=== PATIENT | male | born 1980 | race Caucasian/White ===

== ENCOUNTER 2020-05-14 17:46 | Emergency (ER) | payer OTHER, SELFPAY ==
[2020-05-14 18:57] VITALS: BP 110/68; PULSE 91; RESP 18; TEMP 37.1; O2SAT 100; BMI 31.5
--- NOTE | 2020-05-14 20:23 | ED_ITS ---
HPI - General Adult General Chief complaint: General Medical Stated complaint: flu like Source: patient Mode of arrival: ambulatory Limitations: language barrier History of Present Illness HPI narrative: 39-year-old male with no significant past medical history presents with 1 day of upper respiratory symptoms, sore throat, and fevers. He does not report any sick contacts, to Tylenol with poor effect. He does not describe any chest pain or pressure palpitations, difficulty swallowing secretions, abdominal pain, abdominal distention, dysuria, hematuria, edema. Onset (ago): day(s) (2) Location: head Radiation: non-radiation Severity: moderate Severity scale (1-10): 6 Quality: burning and aching Pain Consistency: constant Relieving factors: none Exacerbating factors: eating Associated symptoms: fever/chills and headaches Treatments prior to arrival: NSAID Related Data Previous Rx's Medication Instructions Recorded amoxicillin 500 mg PO Q12H 10 Days #20 tab 05/14/20 ibuprofen 600 mg PO Q6H PRN #30 tab 05/14/20 Allergies Allergy/AdvReac Type Severity Reaction Status Date / Time albuterol [ALBUTEROL] Allergy Mild RASH Verified 05/14/20 18:57 codeine [CODEINE] Allergy Mild RASH Verified 05/14/20 18:57 Review of Systems Review of Systems: Constitutional: positive Fever, positive Chills, positive fatigue, positive Malaise ENT/Mouth: positive sore throat, no runny nose Eyes: No Discharge Cardiovascular: No Chest Pain, No SOB Respiratory: No Cough, No Sputum, No Wheezing, No Smoke Exposure, No Dyspnea Gastrointestinal: No Nausea, No Vomiting, No Diarrhea Genitourinary: no irregular bleeding, No Dysuria, No Urinary Frequency, No Hematuria, No Urinary Incontinence, No Urgency, No Flank Pain, Musculoskeletal: positive Myalgia Skin: No rash Neuro: No Headache Yes all other systems are reviewed and are negative PMFSH Past Medical History Attestation statement: The following information was validated with the patient. Source: old records reviewed Medical History (Updated 05/14/20 @ 21:05 by Ludy Mcdonald NP) Patient denies medical problems Social History Social History Advance Directives: Yes Advance Directives on File: Yes Advance Directives Date on File: 01/12/20 Physical Exam Vital Signs: Vital Signs: Last Vital Signs Temp 98.7 F 05/14/20 18:57 Pulse 91 05/14/20 18:57 Resp 18 05/14/20 18:57 BP 110/68 05/14/20 18:57 Pulse Ox 100 05/14/20 18:57 Body Mass Index 31.5 Appearance: Alert. Oriented X3. Mild distress. Eyes: Pupils equal, round and reactive to light. ENT: Bilateral tonsillar swelling with exudates, Cent[place] scale 3 Neck: Normal inspection. No lymphadenopathy. CVS: Normal heart rate and rhythm. Pulses normal. Respiratory: No respiratory distress. Breath sounds normal. Abdomen: Soft and nontender to palpation. Skin: Skin warm and dry. Normal skin color. Normal skin turgor. Extremities: No lower extremity edema. Neuro: No motor deficit. No sensory deficit. Course Course Course Narrative: 39-year-old male with no significant past medical history presents for upper respiratory symptoms for approximately 1 day. Visual examination of his oropharyngeal shows bilateral tonsillar swelling with exudates, does not have a cough, or cervical lymphadenopathy. No abdominal tenderness. Plan is for COVID and strep test, and for treatment with amoxicillin. Patient verbalized understanding of and agrees to plan of care discharge home. seismic interpreter utilized for all correspondence. Google translate of discharge instructions. Medical Decision Making Differential Diagnosis Differential Diagnosis: URI, strep pharyngitis, COVID-19, influenza Medical Records Medical records reviewed: Yes I reviewed the patient's medical records. Lab Data Lab results reviewed: Yes I reviewed the patient's lab results. Labs: Lab Results 05/14/20 Range/Units 20:29 COVID-19 ([facility]) Negative (Negative) COVID-19 Clin Com See Note Discharge Plan Discharge Clinical Impression: COVID-19 Pharyngitis Qualifiers: Pharyngitis/tonsillitis etiology: unspecified etiology Qualified Code(s): J02.9 - Acute pharyngitis, unspecified Patient Disposition: Home, Self-Care Instructions: Pharyngitis (ED), Strep Throat (ED), COVID-19 (Coronavirus Disease 2019) (ED) Additional Instructions: Se le evaluaron para los s?ntomas de las v?as respiratorias superiores. El examen f?sico indica faringitis estreptoc?cica. Por favor, tome amoxicilina armando se indica. Termine todo el curso de melida medicamento. Use Tylenol y Motrin seg?n sea necesario para el control del dolor. Montemayor prueba r?pida de COVID fue negativa. Dwayne por elegir melida departamento de emergencias para la evaluaci?n. Por favor, jakub un seguimiento con el m?dico de atenci?n primaria seg?n sea necesario. Regrese al servicio de urgencias para cualquier s?ntoma nuevo, preocupante o que empeore. You were evaluated for upper respiratory symptoms. Physical exam indicates strep pharyngitis. Please take amoxicillin as directed. Finish the entire course of this medication. Use Tylenol and Motrin as needed for pain management. Your rapid COVID test was negative. Thank you for choosing this emergency department for evaluation. Please follow-up with primary care physician as needed. Return to the emergency department for any new, concerning, or worsening symptoms. Prescriptions: New amoxicillin 500 mg tablet 500 mg PO Q12H 10 Days Qty: 20 RF: 0 ibuprofen 600 mg tablet 600 mg PO Q6H PRN (Reason: fever or pain) Qty: 30 RF: 0 Stand Alone Forms: Work/School Release Interventions: ED Discharge Assessment Last Done: 05/14/20 21:14 Discharge Date/Time: 05/14/20 21:15
[2020-05-14 20:51] LABS: COVID-19 Test Negative (Negative); IDNOW Serial# 9DD0AD1C
[2020-05-14] MEDS: Amoxicillin 500 MG CAPSULE PO (21:12)
[2020-05-14] MEDS: Ibuprofen 600 MG TABLET PO (21:12)
== END 2020-05-14 21:15 | disposition home or self-care (01) ==
PROVIDERS: Emergency Provider Internal Medicine
DX: J02.9 Acute pharyngitis, unspecified (principal); Z20.822 Contact with and (suspected) exposure to COVID-19
CPT/HCPCS: 36415; 87071; 87635; 87880; 99283

== ENCOUNTER 2020-06-02 14:32 | Emergency (ER) | payer OTHER, SELFPAY ==
--- NOTE | ~2020-06-02 | XR_ITS ---
EXAMINATION: XR CHEST CLINICAL INFORMATION: Cough. COMPARISON: None TECHNIQUE: Frontal view of the chest was obtained. FINDINGS: No significant abnormality is noted involving the heart, lungs, mediastinum, bony thorax or soft tissues. XR/XR chest 1V IMPRESSION: No acute cardiopulmonary process.
[2020-06-02 14:52] VITALS: BP 121/78; PULSE 87; RESP 18; TEMP 36.8; O2SAT 98; BMI 30.7
--- NOTE | 2020-06-02 16:11 | ED_ITS ---
HPI - URI/Sore Throat General Chief Complaint: Upper Respiratory Symptoms Stated Complaint: COUGH Time Seen by Provider: 06/02/20 15:05 Source: patient Mode of arrival: ambulatory History of Present Illness HPI Narrative: 39-year-old male with no significant past medical history presenting to the ED complaining of persistent dry cough times weeks. Admits has been tested for COVID-19 4-5 times and negative. Admits was recently seen and treated in our ED for similar symptoms given antibiotic and Motrin with improvement in symptoms however still persistent cough. Denies shortness of breath, chest pain, fever, chills, LE edema, calf pain, history of blood clots, recent travel MD elicited complaint: cough Related Data Previous Rx's Medication Instructions Recorded amoxicillin 500 mg PO Q12H 10 Days #20 tab 05/14/20 ibuprofen 600 mg PO Q6H PRN #30 tab 05/14/20 benzonatate [Tessalon Perles] 100 mg PO TID PRN #14 cap 06/02/20 Allergies Allergy/AdvReac Type Severity Reaction Status Date / Time albuterol [ALBUTEROL] Allergy Mild RASH Verified 05/14/20 18:57 codeine [CODEINE] Allergy Mild RASH Verified 05/14/20 18:57 Review of Systems Review of Systems: Constitutional: No Fever, No Chills Cardiovascular: No Chest Pain, No SOB, No edema Respiratory: + Cough, No Sputum, No Wheezing Gastrointestinal: No Nausea, No Vomiting Yes all other systems are reviewed and are negative PMFSH Past Medical History Attestation statement: The following information was validated with the patient. Medical History (Updated 06/02/20 @ 16:21 by EARNEST Navarro) Patient denies medical problems Social History Social History Alcohol intake: never Smoked in Last 30 Days: No Use of substances other than those prescribed or required for medical reasons: No Advance Directives: No Advance Directives Information Provided: No Advance Directives Date on File: 01/12/20 Physical Exam Vital Signs: Vital Signs: Last Vital Signs Temp 98.2 F 06/02/20 14:52 Pulse 87 06/02/20 14:52 Resp 18 06/02/20 14:52 BP 121/78 06/02/20 14:52 Pulse Ox 98 06/02/20 14:52 Body Mass Index 30.7 Const: General: cooperative, healthy appearing and comfortable Orientation/consciousness: patient oriented x3 Limitations: no limitations HENMT: Head: Yes normal to inspection Ears: hearing grossly normal bila terally General nose exam: Normal external nose present Face and sinus: Yes normal facial exam Eyes: General: appearance normal, both eyes and all related structures EOM: EOMs intact bilaterally Neck: Neck: Yes normal visual inspection Resp: Effort & Inspection: normal respiratory effort Auscultation: clear to auscultation bilaterally, no crackles, no rales, no rhonchi and no wheezes Cardio: Rate: regular rate Heart sounds: S1 normal heart sound present and S2 normal heart sound present GI: Inspection: Yes normal to inspection Palpation (GI): Soft to palpation Skin: Rashes: no rashes Wounds: no wounds Neuro: General: patient oriented x3 Gait exam (Neuro): Normal gait present Extrem: General: Yes normal to inspection and Yes no pedal edema Course Course Course Narrative: XR chest 1V IMPRESSION: No acute cardiopulmonary process -COVID-19/influenza/RSV negative MDM - URI/Sore Throat MDM Narrative Medical decision making narrative: 39-year-old male with no significant past medical history presenting to the ED complaining of persistent dry cough times weeks. On exam VSS, NAD/well-appearing, lungs CTA, patient is nontoxic appearing. Concern for viral syndrome/COVID-19. Unlikely pneumonia/PE or ACS Plan: COVID-19 testing, CXR Differential Diagnosis Differential diagnosis: Likely upper respiratory infection and viral infection Medical Records Attestation: I reviewed the patient's medical records. Lab Data Attestation: I reviewed the patient's lab results. Labs: Lab Results 06/02/20 Range/Units 15:19 Coronavirus (PCR) NEGATIVE (Negative) Influenza Type A (PCR) NEGATIVE (Negative) Influenza Type B (PCR) NEGATIVE (Negative) RSV RNA Qual (PCR) NEGATIVE (Negative) Discharge Plan Discharge Clinical Impression: Cough Patient Disposition: Home, Self-Care Instructions: Cold Symptoms (ED) Additional Instructions: Your x-ray was unremarkable today in the ED. Tessalon Perles for cough, take as needed. Continue to use cough drops at home. Follow up with her primary care doctor. Rest. Stay hydrated. If her symptoms persist or worsen, have constant worsening cough, you develop chest pain, shortness breath, or fever unresolved Tylenol or Motrin return to the ED Madrigal radiograf?a no tuvo nada especial hoy en el servicio de urgencias. Tessalon Perles para la tos, freddie seg?n sea necesario. Contin?e usando pastillas para la tos en casa. Yanci un seguimiento con madrigal m?dico de atenci?n primaria. [place]. Mantente hidratado. Si jennie s?ntomas persisten o empeoran, tiene tos que empeora constantemente, presenta dolor en el pecho, dificultad para respirar o fiebre sin resolver Tylenol o Motrin regrese al servicio de urgencias Prescriptions: New benzonatate [Tessalon Perles] 100 mg capsule 100 mg PO TID PRN (Reason: cough) Qty: 14 RF: 0 No Action amoxicillin 500 mg tablet 500 mg PO Q12H 10 Days Qty: 20 RF: 0 ibuprofen 600 mg tablet 600 mg PO Q6H PRN (Reason: fever or pain) Qty: 30 RF: 0 Referrals: Physician,None [Primary Care Provider] - 2 days Interventions: ED Discharge Assessment Last Done: 06/02/20 16:55 Discharge Date/Time: 06/02/20 16:59 Print Language: Citizen Of [place]
[2020-06-02 16:37] LABS: Influenza A PCR NEGATIVE (Negative); Influenza B PCR NEGATIVE (Negative); Resp Syncy Virus RNA Qual PCR NEGATIVE (Negative); SARS COV2 PCR INHOUSE NEGATIVE (Negative)
== END 2020-06-02 16:59 | disposition home or self-care (01) ==
PROVIDERS: Physician Assistant; Emergency Provider Emergency Medicine
DX: R05 Cough (principal); Z20.822 Contact with and (suspected) exposure to COVID-19
CPT/HCPCS: 0241U; 36415; 71045; 99283; 99284

== ENCOUNTER 2024-09-06 15:04 | Outpatient (AMB) | payer BC, SELFPAY ==
--- NOTE | 2024-09-06 15:15 | A.OFFPC_ITS ---
Vital Signs 09/06/24 15:16 Height 5 ft 11 in Weight 226 lb BMI 31.5 BP 108/72 Blood Pressure Location Lt brachial Position Sitting Intake Visit Reasons: Establish care Telephone Maintainer Required: No Accompanied by: Self / Same As Patient Allergies No Known Allergies Allergy (Verified 09/06/24 15:34) Medication List - Last Reconciled 09/06/24 by Francie Vasquez MD No Known Home Meds Tobacco use date assessed: 09/06/24 Dental Screening Dental Screen Date: 09/06/24 Did you have a dental visit in the last 12 months?: No Did you have a dental problem in the last 6 months where you did not have access to dental care?: No Was dental information given to patient?: Yes HPI HPI Comments History of Present Illness Details The patient is a 43-year-old male presenting for a wellness visit and preventative care. The patient reports smoking approximately three cigarettes daily, a habit he has maintained since his twenties. 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 He acknowledges that his also smokes daily, which may influence his smoking habits. 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 He reports sleeping during the day, which sometimes affects his mood and energy levels. He denies any history of allergies, medication use, surgeries, or family history of cancer. His parents are alive and healthy. [facility] Surgical History No pertinent past surgical history Family History Mother No problems noted. Father No problems noted. Family/Other Substance use disorder Maternal Grandmother Alzheimer disease Social History (Updated 09/06/24 @ 15:39 by Francie Vasquez MD) Housing: Apartment Alcohol intake: current Alcohol intake frequency: holidays/special occasions only Alcohol type: beer and wine Patient Tobacco Use Status: Current everyday Tobacco user Tobacco use type: Cigarette Cigarettes Per Day: 3 e-Cigarette/Vaping Use: Never Used Second Hand Smoke Exposure: No Advance Directives Date on File: 01/12/20 service: No Current occupational status: employed Current occupational exposures/hazards: No Cognitive needs: No Hearing needs: No Vision needs: Yes Questionnaire PHQ-9 Over the last 2 weeks, how often have you been bothered by any of the following problems? 1. Little interest or pleasure in doing things: not at all 2. Feeling down, depressed, or hopeless: not at all 3. Trouble falling or staying asleep, or sleeping too much: not at all 4. Feeling tired or having little energy: several days 5. Poor appetite or overeating: not at all 6. Feeling bad about yourself - or that you are a failure or have let yourself or your family down: not at all 7. Trouble concentrating on things, such as reading the newspaper or watching television: not at all 8. Moving or speaking so slowly that other people could have noticed. Or the opposite - being so fidgety or restless that you have been moving around a lot more than usual: not at all 9. Thoughts that you would be better off or of hurting yourself in some way: not at all Total score: 1 Depression Screening Interpretation: Negative Depression Screening Done: Yes 47325 - PHQ-9 Billing: Yes Source: Developed by Drs. Franko Velazco, Hayley Lorenz, Daniel Lu and colleagues, with an educational benitez from [employer]. Thrive Questionnaire Date Thrive assessed: 09/06/24 I am a: Patient What is your living situation today?: I have a steady place to live Within the past 12 months, did the food you bought not last and you didn't have the money to get more?: Never true Within the past 12 months, did you worry whether your food would run out before you got money to buy more?: Never true Do you have trouble paying for medicines?: No Do you have trouble getting transportation to medical appointments?: No Do you have trouble paying your heating and electricity bill?: No Do you have trouble taking care of your child, family member or friend?: No Do you have trouble with day-to-day activities such as bathing, preparing meals, shopping, managing finances, etc.?: No Are you currently unemployed and looking for a job?: No Are you interested in more education?: No Please select the resources that you would like help with: None Currently or been in a relationship where the following occur: No concerns reported THRIVE Score: 0 AUDIT C Alcohol Use Questionnaire (AUDIT-C) 1. How often do you have a drink containing alcohol?: Monthly or less 2. How many drinks containing alcohol do you have on a typical day when you are drinking?: 1 or 2 3. How often do you have six or more drinks on one occasion?: Never Total Score: 1 Score Reviewed/Action Taken: No HARMAN-7 AMB Questionnaire HARMAN-7 Date HARMAN - 7 assessed: 09/06/24 Feeling nervous, anxious, or on edge: 0 = Not at all Not being able to stop or control worryin = Not at all Worrying too much about different things: 0 = Not at all Trouble relaxin = Not at all Being so restless that it is hard to sit still: 0 = Not at all Becoming easily annoyed or irritable: 0 = Not at all Feeling afraid as if something awful might happen: 0 = Not at all Total HARMAN-7 score (0-4 normal; 5-9 mild; 10-14 moderate; 15-21 severe): 0 Source: Developed by Drs. Franko Velazco, Hayley Lorenz, Daniel Lu and colleagues, with an educational benitez from [employer]. HARMAN-7 Assessment Billing HARMAN-7 Assessment Tool: HARMAN-7 Assessment 44400 Review of Systems Const All systems reviewed & are unremarkable except as noted in HPI and below Card Denies chest pain at rest, Denies chest pain with activity, Denies edema, Denies irregular heart rhythm, Denies claudication, Denies dyspnea, Denies dyspnea on exertion, Denies orthopnea, Denies paroxysmal nocturnal dyspnea and Denies slow heart rate Resp Denies cough, Denies dyspnea and Denies dyspnea on exertion GI Denies abdominal pain, Denies change in bowel habits, Denies excessive flatus, Denies nausea and Denies vomiting Skin/Breast Denies bleeding lesions, Denies changing lesions and Denies rash Physical exam (Primary Care) Vital Signs: Last Vital Signs BP 108/72 09/06/24 15:16 BMI result Body Mass Index 31.5 BMI Assessment/Plan discussion: High BMI High, discussed plan: lifestyle, weight reduction, dietary and physical activity Tobacco/Smoking Status: Tobacco use Status Tobacco use date assessed 09/06/24 09/06/24 15:25 Patient Tobacco Use Status Current everyday Tobacco 09/06/24 15:39 Tobacco use type Cigarette 09/06/24 15:39 e-Cigarette/Vaping Use Never Used 09/06/24 15:39 Are you ready to quit: No Tobacco cessation counseling provided: Yes Items discussed: Nicotine replacement and QuitWorks Relapse Prevention: discussed the importance of a supportive environment, discussed extending NRT, discussed negative mood or depression after quitting, weight gain after smoking is common and discussed dietary, exercise and/or lifestyle changes Number of minutes spent counselin CPT code: 01362 - 4-10 Minutes PHQ-9: PHQ-9 Score PHQ-9: Total score 1 09/06/24 15:52 Depression Screening Interpretation: Negative Thrive Assessment: Date of Thrive Assessment Date Thrive assessed 09/06/24 09/06/24 15:25 Currently or been in a relationship where the following occur: No concerns reported HENMO Head: Yes normal to inspection, Yes normocephalic and Yes atraumatic Ears: external ears normal Eyes General: appearance normal, both eyes and all related structures Eyelids: Yes eyelids normal Conjunctivae: conjunctivae normal Neck Neck: Yes normal visual inspection and Yes supple Resp Effort & Inspection: normal respiratory effort Auscultation: clear to auscultation bilaterally Cardio Jugular venous distension: no JVD Rate: regular rate Rhythm: regular rhythm Heart sounds: S1 normal heart sound present and S2 normal heart sound present GI Inspection: Yes normal to inspection Palpation (GI): Soft to palpation and nontender Auscultation: normal bowel sounds Skin General skin exam: no rashes or lesions noted Neuro General: no focal motor deficits Extrem General: Yes full ROM Psych Appearance: grossly normal Immunizations Boostrix Tdap 2.5 Lf unit-8 mcg-5 Lf/0.5 mL intramuscular syringe Performing Provider: Francie Vasquez MD [facility] [place] Administered by: CEDRIC Akbar on 09/06/24 15:52 Dose Route Admin Location Dispensed Lot Number Expiration Date [facility] Cupola Operator Insulation 0.5 mL IM Left Deltoid 0.5 mL [id number] 11/24/26 05052-521-82 [employer] VIS Given Date VIS Provided VIS Publication Date 09/06/24 Single Vaccine 24 Eligibility Eligibility Date Funding Source Not [facility] Eligible 09/06/24 Private Coding Level of Care Code New Pt Prev Care 40-64y(98519) Diagnoses Physical exam Z00.00 Additional Codes HARMAN-7 Assessment Billing - HARMAN-7 Assessment Tool: HARMAN-7 Assessment 58292 ([id number]) PHQ-9 - 63359 - PHQ-9 Billing: Yes ([id number]) Vital Signs *Quality* - CPT code: 45531 - 4-10 Minutes ([id number]) Time Spent (min) 30 Assessment & Plan Assessment & Plan (1) Physical exam: Code(s): Z00.00 - Encounter for general adult medical examination without abnormal findings Category: Medical Plan The patient received a tetanus vaccination during the visit, ensuring protection for the next ten years. He was advised to reduce his daily caloric intake by 500 calories to aid in weight management and consider intermittent fasting as an alternative strategy. The patient was also encouraged to complete laboratory tests with eight hours of fasting within the next three months, as the order will by then. Patient was informed and verbally consented to the use of an ambient scribe for clinic note documentation during this visit. During the visit, I discussed the importance of receiving the tetanus vaccination, which was administered today, providing protection for the next decade. We also talked about strategies for weight management, including reducing caloric intake by 500 calories daily and considering intermittent fasting. I advised the patient to complete the necessary laboratory tests within three months, as the order will by then. The patient was informed about the availability of the laboratory services every day except Sundays. Orders: Orders Lipid Panel Today Z00.00 - Encounter for general adult medical examination without abnormal findings Thyroid Stimulating Hormone Today E66.811 - Obesity, class 1, Z68.31 - Body mass index [BMI] 31.0-31.9, adult TDaP Immunization Today Z23 - Encounter for immunization Comprehensive [place]. Panel Fast Today Z00.00 - Encounter for general adult medical examination without abnormal findings Complete Blood Count Auto Diff Today E66.811 - Obesity, class 1, Z68.31 - Body mass index [BMI] 31.0-31.9, adult Medications: Discontinued amoxicillin Discontinued Reason: Patient no longer taking 500 mg PO Q12H 10 days 20 tabs 0RF ibuprofen Discontinued Reason: Patient no longer taking 600 mg PO Q6H PRN 30 tabs 0RF fever or pain benzonatate (Tessalon Perles) Discontinued Reason: Patient no longer taking 100 mg PO TID PRN 14 caps 0RF cough Patient Instructions: - You received a tetanus shot today; you are protected for the next 10 years. - Try to reduce your daily calorie intake by 500 calories to help manage your weight. - Consider intermittent fasting as a way to manage your weight. - Complete your lab tests with 8 hours of fasting within the next 3 months.
[2024-09-06 15:16] VITALS: BP 108/72; BMI 31.5
== END 2024-09-06 15:50 | disposition home or self-care (01) ==
LOC: HO.HMCH 15:05
PROVIDERS: Visit Provider Internal Medicine
DX: Z23 Encounter for immunization (principal); Z00.00 Encounter for general adult medical examination without abnormal findings

== ENCOUNTER → 2024-09-06 15:04 | Outpatient (BNVA) | payer BC, SELFPAY | PROVIDERS: Visit Provider Internal Medicine | DX: Z00.00 Encounter for general adult medical examination without abnormal findings (principal); E66.811 Obesity, class 1; F17.210 Nicotine dependence, cigarettes, uncomplicated; Z68.31 Body mass index [BMI] 31.0-31.9, adult; Z23 Encounter for immunization | CPT/HCPCS: 90471; 90715; 96127 ==

== ENCOUNTER 2024-09-07 07:21 | Outpatient (REF) | payer BC, SELFPAY ==
--- OUTSIDE RECORDS SUMMARY | 2024-09-07 07:25 | XMS_ITS | Clinical Summary ---
Author Organization [facility] [employer] Address [address] [place] [address] Care Team Providers Care Skin Lap Bonder Name Role Phone Unavailable Primary Care Provider Unavailabl e Social History Tobacco Use Types Packs/Day Years Used Date Smoking Tobacco: Never Assessed Sex and Gender Information Value Date Recorded Sex Assigned at Male 01/26/2022 10:38 AM EDT Legal Sex Male 10:38 AM EDT Gender Identity Male 01/26/2022 10:38 AM EDT Sexual Orientation Straight 01/26/2022 10 :38 AM EDT Plan of Treatment Health Maintenance Due Date Last Done Comments Depression Screening 1980 Lipid Panel 1980 Disability Screening 1980 Alcohol/Substance Use Screening 1992 Tobacco Screening 1992 Family Planning (PISQ) 12/30/1995 DTaP/Tdap/Td Vaccines (1 - Tdap) 12/30/1999 Hepatitis B Vaccines (1 of 3 - 19+ 3-dose series) 12/30/1999 COVID-19 Vaccine ( - 2023-2 5 season) 2023 Influenza Vaccine (Season Ended) 2024 Zoster Vaccines (1 of 2) 2030 RSV Patients and Pa tients Aged 60 years or older (1 - 1-dose 75+ series) 12/30/2055 HIB Vaccines Aged Out No longer eligi ble based on patient's age to complete this topic HPV Vaccines Aged Out No longer eligi ble based on patient's age to complete this topic Hepatitis A Vaccines Aged Out No long er eligible based on patient's age to complete this topic IPV Vaccines Aged Out No longer eligi ble based on patient's age to complete this topic Meningococcal B Vaccine Aged Out No l onger eligible based on patient's age to complete this topic Meningococcal Vaccine Aged Out No ashley yusuf eligible based on patient's age to complete this topic Pneumococcal Vaccine: Pediat rics (0 to 5 Years) and At-Risk Patients (6 to 49) Years) Aged Out No longer eligible b ased on patient's age to complete this topic RSV under 20 months Aged Out No longe r eligible based on patient's age to complete this topic Rotavirus Vaccines Aged Out No longer eligible based on patient's age to complete this topic
[2024-09-07 07:31] LABS: MANUAL DIFF FLAG NO
[2024-09-07 07:45] LABS: Basophils Absolute Auto 0.1 X10*3/uL (0.0-0.2); Basophils Percent Auto 0.7 % (0-2); Eosinophils Absolute Auto 0.2 X10*3/uL (0.0-0.4); Eosinophils Percent Auto 2.1 % (0-4); Hematocrit 36.2 % (42.0-52.0); Hemoglobin 12.7 g/dl (14.0-18.0); Imm Gran Abs Auto 0.02 X10*3/uL (0.00-0.03); Imm Gran Pct Auto 0.2 % (0.0-0.4); Lymphocytes Absolute Auto 3.2 X10*3/uL (1.2-4.9); Lymphocytes Percent Auto 35.8 % (20-40); Mean Corpuscular HGB Conc 35.1 g/dl (31.0-36.0); Mean Corpuscular Hemoglobin 29.3 pg (27.0-33.0); Mean Corpuscular Volume 83.6 fL (80.0-98.0); Mean Platelet Volume 10.1 fL (9.4-12.4); Monocytes Absolute Auto 0.6 X10*3/uL (0.1-1.2); Monocytes Percent Auto 6.5 % (2-11); Neutrophils Absolute Auto 4.9 x10*3/uL (2.0-8.3); Neutrophils Percent Auto 54.7 % (45-73); Platelet Count 303 X10*3/uL (160-400); Red Blood Count 4.33 X10*6/uL (4.60-5.80); Red Cell Distribution Width 13.4 % (11.0-16.0)
[2024-09-07 08:24] LABS: Alanine Aminotransferase 55 U/L (0-40); Albumin Level 4.4 g/dL (3.5-5.0); Alkaline Phosphatase 111 U/L (39-117); Anion Gap 12 (12-20); Aspartate Amino Transferase 39 U/L (5-37); Bilirubin Total 0.5 mg/dL (0.0-1.0); Blood Urea Nitrogen 17 mg/dL (9-16); Calcium 9.8 mg/dL (8.4-10.2); Carbon Dioxide 23 mmol/L (22-29); Chloride 107 mmol/L (96-108); Cholesterol 190 mg/dL (<200); Estimated Glomerular Filt Rate > 60; Glucose Fasting 94 mg/dL (60-99); HDL Cholesterol 47 mg/dL (>40); LDL Cholesterol Calculated 120 mg/dL (<100); Potassium 4.2 mmol/L (3.3-5.1); Sodium 138 mmol/L (135-145); Total Protein 7.6 g/dL (6.5-8.0); Triglycerides 115 mg/dL (<150)
[2024-09-07 08:38] LABS: Thyroid Stimulating Hormone 2.68 uIU/mL (0.32-4.0)
== END 2024-09-07 07:22 | disposition home or self-care (01) ==
LOC: HO.LAB 07:21
PROVIDERS: PCP Internal Medicine; Visit Provider Internal Medicine
DX: Z00.00 Encounter for general adult medical examination without abnormal findings (principal); E66.811 Obesity, class 1; Z68.31 Body mass index [BMI] 31.0-31.9, adult
CPT/HCPCS: 36415; 80053; 80061; 84443; 85025

== ENCOUNTER → 2024-11-09 15:20 | Outpatient (BNV) | payer BC, SELFPAY | PROVIDERS: PCP Internal Medicine; Referring Provider Internal Medicine; Visit Provider Nurse Practitioner Family | DX: D64.9 Anemia, unspecified (principal) | CPT/HCPCS: 99204; 99213 ==

== ENCOUNTER 2024-11-24 07:19 | Outpatient (REF) | payer BC, SELFPAY ==
--- NOTE | ~2024-11-24 | US_ITS ---
EXAMINATION: US ABDOMEN COMPLETE WITH LIVER ELASTOGRAPHY HISTORY: Transaminitis, elevated bilirubin, anemia TECHNIQUE: Real-time grayscale ultrasound imaging of the abdomen was performed and images were reviewed. COMPARISON: There are no prior studies available for comparison. FINDINGS: Liver: The right lobe of the liver measures 18.0 cm in size. The left lobe of the liver measures 9.4 cm in size. The liver demonstrates increased echotexture, consistent with steatosis. No focal mass or intrahepatic biliary ductal dilatation is identified. There is normal hepatopedal flow in the portal vein. Ultrasound elastography of the liver was performed with 10 separate measurements of the liver parenchyma with the patient in the supine position. Measurements were obtained approximately 2 cm below Josh's capsule and perpendicular to the capsule. The median shear wave velocity is 1.41 m/s. The interquartile range/median (IQR/median) is 0.11. Gallbladder and biliary tree: The gallbladder is contracted. No calculi are identified. There is no sonographic Desai sign. The common bile duct is normal in caliber measuring 2 mm. Kidneys: The right kidney measures 11.1 cm in length. The left kidney measures 11.4 cm in length and demonstrates a 1.8 x 1.6 x 1.4 cm cyst at the lower pole. The kidneys are otherwise unremarkable, without evidence of solid masses, hydronephrosis, or calculi. Pancreas: The pancreas is obscured by bowel gas. Spleen: The spleen is normal in size and contour, measuring 9.2 cm in length. Abdominal aorta and inferior vena cava: The visualized portions of the abdominal aorta and inferior vena cava are normal in caliber. There is no free fluid in the abdomen. US/US abdomen comp w elastography IMPRESSION: Hepatomegaly and hepatic steatosis. The median shear wave velocity in the liver is 1.41 m/s, corresponding to a median liver stiffness of 6.04 kPa. The IQR/median value is 0.11. This is indicative of a quality data set. Findings are indicative of a low elastography value which rules out advanced chronic liver disease in asymptomatic patients. REFERENCE: Society of Radiologists in Ultrasound Liver Stiffness Thresholds (2019): LIVER STIFFNESS THRESHOLDS: *Shear wave velocity less than 1.3 m/s (Liver Stiffness equal or less than 5 kPa): High probability of being normal. *Shear wave velocity less than 1.7 m/s (Liver Stiffness less than 9 kPa): In the absence of other known clinical signs, rules out compensated advanced chronic liver disease. *Shear wave velocity between 1.7-2.1 m/s (Liver Stiffness 9-13 kPa): Suggestive of compensated advanced chronic liver disease but need further test for confirmation. *Shear wave velocity between 2.1-2.4 m/s (Liver Stiffness 13-17 kPa): Rules in compensated advanced chronic liver disease. *Shear wave velocity greater than 2.4 m/s (Liver Stiffness over 17 kPa): Suggestive of clinically significant portal hypertension. QUALITY OF DATA SET: *IQR/Median value equal or less than 0.15 implies a quality data set. *IQR/Median value over 0.15 implies a poor quality data set. SIGNIFICANT CHANGE FROM PRIOR EXAM: Significant change if liver stiffness measurement is 10% or greater from prior exam. OTHER CONSIDERATIONS: The stage of liver fibrosis may be overestimated in the setting of acute hepatitis, liver inflammation, elevated liver function tests, hepatic vascular congestion, obstructive cholestasis, non-fasting state, and infiltrative diseases such as amyloidosis and lymphoma. In some patients with NAFLD, the liver stiffness thresholds for compensated advanced chronic liver disease may be lower. In causes other than viral hepatitis and NAFLD, liver stiffness thresholds are not well established. Electronically signed by: Franko Alas MD 11/24/2024 08:22 AM EDT
--- OUTSIDE RECORDS SUMMARY | 2024-11-24 07:22 | XMS_ITS | Clinical Summary ---
Author Organization [facility] [employer] Address [address] [place] [address] Care Team Providers Care Appointment Manager Name Role Phone Unavailable Primary Care Provider [...] Tobacco Screening 1992 Family Planning (PISQ) 12/30/1995 HPV Vaccines (1 - Male 3-dos e series) 12/30/1995 DTaP/Tdap/Td Vaccines (1 - Tdap) 12/30/1999 Hepatitis B Vaccines (1 of 3 - 19+ 3-dose series) 12/30/1999 COVID-19 Vaccine (1 - 2023-2 5 season) 2023 Influenza Vaccine (#1) 2024 Zoster Vaccines (1 of 2) 2030 [...] Years) and At-Risk Patients (6 to 49) Years Aged Out No longer eligible b ased on patient's age to complete this topic RSV under 20 months Aged Out No longe r eligible based on patient's age to complete this topic Rotavirus Vaccines Aged Out No longer eligible based on patient's age to complete this topic
--- OUTSIDE RECORDS SUMMARY | 2024-11-24 07:22 | XMS_ITS | Encounter Summary ---
Author Organization [facility] [employer] [facility] Address [address] [place] [address] Care Team Providers Care Production Repairer Name Role Phone Unavailable Primary Care Provider Unavailabl e Encounter Details Date Type Department Care Team (Latest Contact Info) Description 10/24/2020 Abstract [facility] CONVERSIONS Dental, Provider, DDS Social History Tobacco Use Types Packs/Day Years Used Date Smoking Tobacco: Never Assessed Sex and Gender Information Value Date Recorded Sex Assigned at Male 01/26/2022 10:38 AM EDT Legal Sex Male 10:38 AM EDT Gender Identity Male 01/26/2022 10:38 AM EDT Sexual Orientation Straight 01/26/2022 10 :38 AM EDT documented as of this encounter Plan of Treatment Not on file documented as of this encounter Visit Diagnoses Not on filedocumented in this encounter
== END 2024-11-24 07:20 | disposition home or self-care (01) ==
LOC: HO.US 07:19
PROVIDERS: PCP Internal Medicine; Visit Provider Nurse Practitioner Family
DX: D64.9 Anemia, unspecified (principal); R17 Unspecified jaundice; R74.01 Elevation of levels of liver transaminase levels
CPT/HCPCS: 76700; 76981

== ENCOUNTER → 2024-11-24 07:22 | Outpatient (BNV) | payer BC, SELFPAY | PROVIDERS: PCP Internal Medicine; Visit Provider Radiology Diagnostic Radiology | DX: R94.5 Abnormal results of liver function studies (principal); D64.9 Anemia, unspecified; K76.0 Fatty (change of) liver, not elsewhere classified; R16.0 Hepatomegaly, not elsewhere classified | CPT/HCPCS: 76700 ==

== ENCOUNTER 2025-02-05 13:47 | Outpatient (AMB) | payer BC, SELFPAY ==
--- NOTE | 2025-02-05 14:01 | MHC.OFFVIS ---
Vital Signs 02/05/25 14:08 Height 5 ft 11 in Weight 223 lb BMI 31.1 BP 130/76 Blood Pressure Location Rt brachial Position Sitting Pulse 104 H Pulse Source Pulse Oximeter Pulse Oximetry (%) 97 Oxygen Delivery Method Room Air Intake Visit Reasons: Elevated transaminases Intake Note: New pt for initial eval of elevated labs. CC: Pt denies any GI related concerns or sx at this time. Battery Container Inspector Required: Yes Battery Container Inspector Services: Battery Container Inspector Present Accompanied by: Self / Same As Patient Allergies No Known Allergies Allergy (Verified 02/05/25 14:07) HPI Comments Details: 44 y.o F with PMH of who is here to [facility]. Pt was referred for elevated LFTs as well as mild anemia. Reports no sx including abd pain, N,V,D, melena or hematochezia. Originally from [place]. Was not seeing any doctors for the last 20 years. Now on iron and B12 supplements. Pt drinks 1-2times a month but when he does drink he drinks 4-6 beers in a single setting. Smokes cigarettes 2-3 cigarettes/day. No fam hx of liver disease. Fasting glucose is good. Cholesterol is good. Sedentary lifestyle. [facility] Surgical History No pertinent past surgical history Family History Mother No problems noted. Father No problems noted. Family/Other Substance use disorder Maternal Grandmother Alzheimer disease Social History Housing: Apartment Alcohol intake: current Alcohol intake frequency: holidays/special occasions only Alcohol type: beer and wine Patient Tobacco Use Status: Current everyday Tobacco user Tobacco use type: Cigarette e-Cigarette/Vaping Use: Never Used Second Hand Smoke Exposure: No Advance Directives Date on File: 01/12/20 service: No Current occupational status: employed Current occupational exposures/hazards: No Cognitive needs: No Hearing needs: No Vision needs: Yes Review of Systems Const All systems reviewed & are unremarkable except as noted in HPI and below Physical Exam Exam Exam: No apparent distress Nonicteric Abdomen soft, nondistended Alert and oriented x3, normal gait Vital Signs: Last Vital Signs Pulse 104 H 02/05/25 14:08 BP 130/76 02/05/25 14:08 Pulse Ox 97 02/05/25 14:08 Oxygen Delivery Method Room Air 02/05/25 14:08 BMI result Body Mass Index 31.1 Assessment & Plan Assessment & Plan (1) Transaminitis: Code(s): R74.01 - Elevation of levels of liver transaminase levels Category: Medical (2) Anemia: Code(s): D64.9 - Anemia, unspecified Category: Medical Plan 1. 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 Reviewed importance of etOH abstinence x 3-6 months and rechecking labs. Also reviewed control and modification of metabolic factors. Pt to also incorporate 20 mins of mod intensity exercise daily. Plan: - etOH abstinence - 10% TBW loss in 6 months - Mod intensity exercise 150 mins/week - Check labs for other chronic liver disease w.up 2. Anemia Iron studies normal but pt already on iron supplementation Plan: - EGD/colo to be booked - PEG prep Rxed and instructions reviewed with the help of inspector ball points - Celiac serology ordered Follow up after scopes Orders: Orders Ceruloplasmin Today R74.01 - Elevation of levels of liver transaminase levels Immunoglobulin A Today R74.01 - Elevation of levels of liver transaminase levels HIV Ab/Ag Today R74.01 - Elevation of levels of liver transaminase levels Hepatitis C Antibody Today R74.01 - Elevation of levels of liver transaminase levels Hepatitis B Surface Antigen Today R74.01 - Elevation of levels of liver transaminase levels Hepatitis B Surface Antibody Today R74.01 - Elevation of levels of liver transaminase levels Hemoglobin A1c Today R74.01 - Elevation of levels of liver transaminase levels Phosphatidylethanol, Blood Today R74.01 - Elevation of levels of liver transaminase levels Smooth Muscle Antibody Today R74.01 - Elevation of levels of liver transaminase levels Transglutaminase IgA Today R74.01 - Elevation of levels of liver transaminase levels TSH reflex Free T4 Today R74.01 - Elevation of levels of liver transaminase levels Alpha 1 Anti-trypsin Today R74.01 - Elevation of levels of liver transaminase levels MONICA Reflex Titer and Pattern Today R74.01 - Elevation of levels of liver transaminase levels IRON PROFILE Today R74.01 - Elevation of levels of liver transaminase levels Immunoglobulin G Today R74.01 - Elevation of levels of liver transaminase levels Hepatitis B Core Antibody Today R74.01 - Elevation of levels of liver transaminase levels Hepatitis A IgG Today R74.01 - Elevation of levels of liver transaminase levels Liver Kidney Microsomal Ab Today R74.01 - Elevation of levels of liver transaminase levels Prothrombin Time INR Today R74.01 - Elevation of levels of liver transaminase levels Referrals GI Procedure Notification D64.9 - Anemia, unspecified Medications: New peg 3350-electrolytes [id number] -5.86 gram (Golytely) as per split prep instructions, until fecal effluent is clear 240 mL PO Q10M 4,000 mL 0RF colonoscopy Coding Level of Care Code New Pt Level 4 (44954) Complex EM visit Add On G2211 Diagnoses Transaminitis R74.01 Anemia D64.9
[2025-02-05 14:08] VITALS: BP 130/76; PULSE 104; O2SAT 97; BMI 31.1
== END 2025-02-05 16:17 | disposition home or self-care (01) ==
LOC: HO.HGI 13:48
PROVIDERS: PCP Internal Medicine; Visit Provider Internal Medicine
DX: R74.01 Elevation of levels of liver transaminase levels (principal); D64.9 Anemia, unspecified
CPT/HCPCS: 99204